=== PATIENT | male | born 1960 | race Caucasian/White ===

== ENCOUNTER → 2017-12-30 | Outpatient (CLI) | payer BC ==
[~2017-12-30] MED LIST: IOHEXOL 240 MG/ML 50ML VIAL. ONE
--- NOTE | 2017-12-30 15:41 | RAD ---
CT of the abdomen and pelvis without contrast, 12/30/2017: HISTORY: Left lower quadrant pain No IV contrast was administered for this exam. Oral contrast was administered for GI tract opacification. The unopacified liver is unremarkable. Numerous dense gallstones are present in the gallbladder. The gallbladder wall is not thickened. No pericholecystic edema is present. The pancreas is unremarkable. The spleen is of normal size. The unopacified kidneys show no abnormality. There is mild aortoiliac calcific plaquing. No abdominal or pelvic adenopathy is seen. The prostate gland is at the upper limits of normal in size. There is a left inguinal hernia containing a short segment of proximal sigmoid colon. There is no evidence of associated obstruction or incarceration at this time. There is also a right inguinal hernia containing fat and spermatic cord structures. No bowel herniation is evident on the right. The bowel loops are not dilated. Several scattered colonic diverticula are seen without paracolic inflammation. The appendix is unremarkable. A small hiatal hernia is noted. No free air or free fluid is present in the abdomen or pelvis. There are mild multilevel degenerative changes in the lower lumbar spine. IMPRESSION: 1. Left inguinal hernia containing a short nonobstructed segment of sigmoid colon. 2. Fat-containing right inguinal hernia. 3. Minimal colonic diverticulosis. 4. Cholelithiasis. 5. Small hiatal hernia. PQRS Compliance Statement: One or more of the following individualized dose reduction techniques were utilized for this examination: 1. Automated exposure control 2. Adjustment of the mA and/or kV according to patient size 3. Use of iterative reconstruction technique Electronically signed by: Long Colon MD (12/30/2017 3:38 PM) [facility]
== END | disposition home or self-care (01) ==
LOC: CT 13:58
PROVIDERS: ATTEND Physician Assistant Medical
DX: K40.90 Unilateral inguinal hernia, without obstruction or gangrene, not specified as recurrent (principal); K57.30 Diverticulosis of large intestine without perforation or abscess without bleeding; K80.20 Calculus of gallbladder without cholecystitis without obstruction; K44.9 Diaphragmatic hernia without obstruction or gangrene
CPT/HCPCS: 74176; Q9966

== ENCOUNTER 2018-09-11 17:22 | Emergency (ER) | payer BC ==
[~2018-09-11] VITALS: Ht 180.3 cm; Wt 96.6 kg
[2018-09-11] MEDS ORDERED: HYDR30CR61 TP (17:52)
--- NOTE | 2018-09-11 17:52 | PHYS DOC ---
Past History Past Medical History: High Cholesterol (DARIANA MCCOLLUM DO) Past Surgical History: Other Additional Past Surgical Histo: hernia repair (DARIANA MCCOLLUM DO) Smoking: Non-smoker Alcohol Use: Sober Drug Use: None (DARIANA MCCOLLUM DO) Adult General Chief Complaint Chief Complaint: RECTAL BLEED HPI HPI Patient is a 58-year-old male presents with rectal bleeding for the past 4 days. It was initially a lot on day 1, dark blood, no black tarry-looking stools. Has slowly improved with Preparation H. He has not followed up with any other physician. Denies any weakness, easy bruising, or prior history of this. Started during a bowel movement. No nausea or vomiting. No recent changes in weight.[] (DARIANA MCCOLLUM DO) Review of Systems Review of Systems Constitutional: Denies fever or chills [] Eyes: Denies change in visual acuity, redness, or eye pain [] HENT: Denies nasal congestion or sore throat [] Respiratory: Denies cough or shortness of breath [] Cardiovascular: No chest pain or palpitations[] GI: Denies abdominal pain, see history of present illness[] : Denies dysuria or hematuria [] Musculoskeletal: Denies back pain or joint pain [] Integument: Denies rash or skin lesions [] Neurologic: Denies headache, focal weakness or sensory changes [] Endocrine: Denies polyuria or polydipsia [] All other systems were reviewed and found to be within normal limits, except as documented in this note. (DARINAA MCCOLLUM DO) Allergies Allergies Allergies Coded Allergies Type Severity Reaction Last Updated Verified atorvastatin Allergy Unknown 09/11/18 Yes (DARIANA MCCOLLUM DO) Physical Exam Physical Exam Constitutional: Well developed, well nourished, no acute distress, non-toxic appearance. [] HENT: Normocephalic, atraumatic, bilateral external ears normal, oropharynx moist, no oral exudates, nose normal. [] Eyes: PERRLA, EOMI, conjunctiva normal, no discharge. [] Neck: Normal range of motion, no tenderness, supple, no stridor. [] Cardiovascular:Heart rate regular rhythm, no murmur [] Lungs & Thorax: Bilateral breath sounds clear to auscultation [] Abdomen: Bowel sounds normal, soft, no tenderness, no masses, no pulsatile masses. Rectal exam showed firmness at the 4 to 5 o'clock position with blood at that position on exam, brown stool, no prostate tenderness. [] Skin: Warm, dry, no erythema, no rash. [] Back: No tenderness, no CVA tenderness. [] Extremities: No tenderness, no cyanosis, no clubbing, ROM intact, no edema. [] Neurologic: Alert and oriented X 3, normal motor function, normal sensory fun ction, no focal deficits noted. [] Psychologic: Affect normal, judgement normal, mood normal. [] (DARIANA MCCOLLUM DO) EKG EKG [] (DARIANA MCCOLLUM DO) Radiology/Procedures Radiology/Procedures [] (DARIANA MCCOLLUM DO) Course & Med Decision Making Course & Med Decision Making Pertinent Labs and Imaging studies reviewed. (See chart for details) ED course: Patient arrived, was placed in bed, and tolerated exam well. Laboratory testing was sent. This will be followed by the oncoming physician. Patient care endorsed to the night physician at 1800.[] (DARIANA MCCOLLUM DO) Course & Med Decision Making The patient's labs are unremarkable. His Hemoccult is positive. He is not anemic at this time. My colleague's exam revealed likely hemorrhoid around 4 o'clock position. I agree that this is likely hemorrhoids and the patient can be safely discharged at this time. We will give him a prescription for Anusol HC. He is stable for discharge at this time. (PATRICE WAY DO) Dragon Disclaimer Dragon Disclaimer This electronic medical record was generated, in whole or in part, using a voice recognition dictation system. (DARIANA MCCOLLUM DO) Departure Departure: Impression: Primary Impression: External hemorrhoid, bleeding Disposition: 01 HOME, SELF-CARE Condition: IMPROVED Referrals: KATYA DAY (PCP) Follow-up in 2 days Patient Instructions: Hemorrhoids Additional Instructions: Follow-up with your regular doctor in 2 days. Use the medicine as prescribed. Return to the ER if worsening bleeding or any other concerns. Scripts Hydrocortisone (ANUSOL-HC) 30 Gm Cream..g. 1 KERRY TP BID for hemorrhoids, #30 GM 1 Refill Prov: DARIANA MCCOLLUM DO 09/11/18 DARIANA MCCOLLUM DO Sep 11, 2018 17:[address] DO Sep 11, 2018 18:39
[2018-09-11 18:07] LABS: FECAL OB PT POSITIVE (NEG)
[2018-09-11 18:10] LABS: BASO # 0.1 x10^3/uL (0.0-0.2); BASO % 1 % (0-3); EOS # 0.3 x10^3/uL (0.0-0.7); EOS % 5 % (0-3); HEMATOCRIT 42.8 % (39.0-53.0); HEMOGLOBIN 14.7 g/dL (13.0-17.5); LYMPH # 1.6 x10^3/uL (1.0-4.8); LYMPH % 24 % (24-48); MEAN CORPUSCULAR HEMOGLOBIN 30 pg (25-35); MEAN CORPUSCULAR HGB CONC 34 g/dL (31-37); MEAN CORPUSCULAR VOLUME 87 fL (79-100); MONO # 0.6 x10^3/uL (0.0-1.1); MONO % 10 % (0-9); NEUT # 4.1 x10^3uL (1.8-7.7); NEUT % 61 % (31-73); PLATELET COUNT 227 x10^3/uL (140-400); RED BLOOD COUNT 4.94 x10^6/uL (4.30-5.70); WHITE BLOOD COUNT 6.7 x10^3/uL (4.0-11.0)
[2018-09-11 18:23] LABS: ALBUMIN 3.8 g/dL (3.4-5.0); ALBUMIN/GLOBULIN RATIO 1.5 (1.0-1.7); CALCIUM 9.3 mg/dL (8.5-10.1); CREATININE 1.1 mg/dL (0.7-1.3); GFR 68.8; POTASSIUM 4.2 mmol/L (3.5-5.1); TOTAL BILIRUBIN 0.8 mg/dL (0.2-1.0); TOTAL PROTEIN 6.3 g/dL (6.4-8.2)
[2018-09-11 18:40] VITALS: BP 111/63
== END 2018-09-11 18:42 | disposition home or self-care (01) ==
LOC: ER 17:22
DX: K64.4 Residual hemorrhoidal skin tags (principal); E78.00 Pure hypercholesterolemia, unspecified; Z88.8 Allergy status to other drugs, medicaments and biological substances
CPT/HCPCS: 36415; 80053; 82274; 85025; 85610; 99284

== ENCOUNTER 2019-02-20 07:07 | Emergency (ER) | payer BC ==
[~2019-02-20] VITALS: Ht 177.8 cm; Wt 95.3 kg
[~2019-02-20 07:07] MED LIST changes: +HYDR30CR61 TP; -IOHEXOL 240 MG/ML 50ML VIAL. ONE
--- NOTE | 2019-02-20 07:55 | PHYS DOC ---
Past History Past Medical History: High Cholesterol Past Surgical History: Other Additional Past Surgical Histo: hernia repair Smoking: Non-smoker Alcohol Use: Sober Drug Use: None Adult General Chief Complaint Chief Complaint: FACE PROBLEM HPI HPI Patient is a 59-year-old male who presents with complaint of right-sided facial droop that he first noticed last night at about 7 PM. Patient states that he is having a hard time closing his right eye. He does indicate that he has some pain behind his right ear but does not think that it is associated with a facial droop. He denies any lateralizing weakness of the arms or legs. He denies headache. He denies any nausea or vomiting. Patient does indicate that he first noticed his symptoms when he was trying to drink some water and he noted droolin g out of the side of his mouth.[] Review of Systems Review of Systems Constitutional: Denies fever or chills [] Eyes: Denies change in visual acuity, redness, or eye pain [] Respiratory: Denies cough or shortness of breath [] Cardiovascular: No additional information not addressed in HPI [] GI: Denies abdominal pain, nausea, vomiting or diarrhea [] Integument: Denies rash or skin lesions [] Neurologic: Denies headache, focal weakness or sensory changes. Positive right- sided facial droop. [] All other systems were reviewed and found to be within normal limits, except as documented in this note. Allergies Allergies Allergies Coded Allergies Type Severity Reaction Last Updated Verified atorvastatin Allergy Unknown 09/11/18 Yes Physical Exam Physical Exam Constitutional: Well developed, well nourished, no acute distress, non-toxic appearance. [] HENT: Normocephalic, atraumatic, bilateral external ears normal, oropharynx moist, no oral exudates, nose normal. [] Eyes: PERRLA, EOMI, conjunctiva normal, no discharge. Heterochromia is noted. [] Neck: Normal range of motion, no tenderness, supple, no stridor. [] Cardiovascular: Regular rate and rhythm[] Lungs & Thorax: Bilateral breath sounds clear to auscultation [] Abdomen: Bowel sounds normal, soft, no tenderness. [] Skin: Warm, dry, no erythema, no rash. [] Extremities: No tenderness, no cyanosis, no clubbing, ROM intact, no edema. [] Neurologic: Alert and oriented X 3, normal motor function, normal sensory function. Cranial nerve assessment demonstrates a right sided cranial nerve VII deficit with involvement of the forehead. [] Current Patient Data Vital Signs Vital Signs Date Time Temp Pulse Resp B/P (MAP) Pulse Ox O2 Delivery O2 Flow Rate FiO2 02/20/19 07:26 97.9 62 16 97 Room Air EKG EKG [] Radiology/Procedures Radiology/Procedures [] Impressions: PROCEDURE: CT HEAD WO CONTRAST STUDY: CT head without contrast INDICATION: Right-sided facial droop for the past 2 days. COMPARISON: None. TECHNIQUE: Axial CT imaging through the head without the use of intravenous contrast. Sagittal and coronal reformats were obtained. One or more of the following individualized dose reduction techniques were utilized for this examination: 1. Automated exposure control 2. Adjustment of the mA and/or kV according to patient size 3. Use of iterative reconstruction technique. FINDINGS: No discrete area of still-white matter differentiation loss is identified. The deep still nuclei are well delineated. No mass effect, midline shift or hydrocephalus. No acute intracranial hemorrhage. Unremarkable calvarium, visualized paranasal sinuses and mastoid air cells. IMPRESSION: No acute intracranial abnormality seen by CT. If there is ongoing concern for a recent ischemic event, MRI would be more sensitive. Electronically signed by: LAY DE LA TORRE MD (02/20/2019 8:06 AM) [facility] Course & Med Decision Making Course & Med Decision Making Pertinent Labs and Imaging studies reviewed. (See chart for details) [] Dragon Disclaimer Dragon Disclaimer This electronic medical record was generated, in whole or in part, using a voice recognition dictation system. Departure Departure: Impression: Primary Impression: Vega's palsy Disposition: 01 HOME, SELF-CARE Condition: STABLE Referrals: KATYA DAY (PCP) Patient Instructions: Vega's Palsy Scripts Prednisone (PREDNISONE) 20 Mg Tablet 3 TAB PO DAILY for Vega's palsy, #21 TAB Prov: REBECA BENAVIDES Jr. DO 02/20/19 Valacyclovir Hcl (VALTREX) 1,000 Mg Tablet 1 TAB PO TID for Vega's palsy, #21 TAB Prov: REBECA BENAVIDES Jr. DO 02/20/19 REBECA BENAVIDES Jr. DO Feb 20, 2019 07:55
[2019-02-20 08:07] LABS: BASO % 1 % (0-3); EOS # 0.2 x10^3/uL (0.0-0.7); EOS % 3 % (0-3); HEMATOCRIT 44.4 % (39.0-53.0); HEMOGLOBIN 14.8 g/dL (13.0-17.5); LYMPH % 15 % (24-48); MEAN CORPUSCULAR HEMOGLOBIN 29 pg (25-35); MEAN CORPUSCULAR HGB CONC 33 g/dL (31-37); MEAN CORPUSCULAR VOLUME 88 fL (79-100); MONO # 0.6 x10^3/uL (0.0-1.1); MONO % 9 % (0-9); NEUT # 4.9 x10^3uL (1.8-7.7); NEUT % 72 % (31-73); PLATELET COUNT 233 x10^3/uL (140-400); RED BLOOD COUNT 5.05 x10^6/uL (4.30-5.70); RED CELL DISTRIBUTION WIDTH 13.6 % (11.5-14.5); WHITE BLOOD COUNT 6.8 x10^3/uL (4.0-11.0)
--- NOTE | 2019-02-20 08:09 | RAD ---
STUDY: CT head without contrast INDICATION: Right-sided facial droop for the past 2 days. COMPARISON: None. TECHNIQUE: Axial CT imaging through the head without the use of intravenous contrast. Sagittal and coronal reformats were obtained. One or more of the following individualized dose reduction techniques were utilized for this examination: 1. Automated exposure control 2. Adjustment of the mA and/or kV according to patient size 3. Use of iterative reconstruction technique. FINDINGS: No discrete area of still-white matter differentiation loss is identified. The deep still nuclei are well delineated. No mass effect, midline shift or hydrocephalus. No acute intracranial hemorrhage. Unremarkable calvarium, visualized paranasal sinuses and mastoid air cells. IMPRESSION: No acute intracranial abnormality seen by CT. If there is ongoing concern for a recent ischemic event, MRI would be more sensitive. Electronically signed by: LAY DE LA TORRE MD (02/20/2019 8:06 AM) [facility]
[2019-02-20 08:15] LABS: ALBUMIN 4.1 g/dL (3.4-5.0); ALBUMIN/GLOBULIN RATIO 1.3 (1.0-1.7); CALCIUM 9.2 mg/dL (8.5-10.1); CREATININE 1.3 mg/dL (0.7-1.3); GFR 56.5; POTASSIUM 4.7 mmol/L (3.5-5.1); TOTAL BILIRUBIN 0.9 mg/dL (0.2-1.0); TOTAL PROTEIN 7.2 g/dL (6.4-8.2)
[2019-02-20] MEDS ORDERED: VALA10005 PO (09:16)
[2019-02-20] MEDS ORDERED: PRED20TA PO (09:16)
[2019-02-20 09:17] VITALS: BP 142/81
== END 2019-02-20 09:30 | disposition home or self-care (01) ==
LOC: ER 07:07
DX: G51.0 Bell's palsy (principal); E78.00 Pure hypercholesterolemia, unspecified; Z88.8 Allergy status to other drugs, medicaments and biological substances
CPT/HCPCS: 36415; 70450; 80053; 84484; 85025; 85651; 99285-25